=== PATIENT | female | born 1990 | race Caucasian/White ===

== ENCOUNTER 2018-05-24 12:55 | Emergency (ER) | payer OTHER ==
[2018-05-24 13:15] VITALS: BP 107/56; PULSE 81; TEMP 98.8; BMI 28.7
--- NOTE | 2018-05-24 13:20 | PDOC ---
History of Present Illness - General Chief Complaint: Chest Pain Stated Complaint: CHEST PAIN/SHORT BREATH Time Seen by Provider: 05/24/18 13:20 Past History - Past Medical History Allergies/Adverse Reactions: Allergies Allergy/AdvReac Type Severity Reaction Status Date / Time No Known Allergies Allergy Verified 05/24/18 13:12 COPD: No Thyroid Disease: Yes Other medical history: lmp 05/03/2018 - Suicide/Smoking/Psychosocial Hx Smoking History: Unknown if ever smoked *Physical Exam - Vital Signs Last Vital Signs Temp Pulse Resp BP Pulse Ox 98.8 F 81 18 107/56 L 99 05/24/18 13:05 05/24/18 13:05 05/24/18 13:05 05/24/18 13:05 05/24/18 13:05 Moderate Sedation - Procedure Monitoring Vital Signs: Procedure Monitoring Vital Signs Temperature 98.8 F 05/24/18 13:05 Pulse Rate 81 05/24/18 13:05 Respiratory Rate 18 05/24/18 13:05 Blood Pressure 107/56 L 05/24/18 13:05 O2 Sat by Pulse Oximetry (%) 99 05/24/18 13:05
--- NOTE | 2018-05-24 14:06 | PDOC ---
History of Present Illness - General Chief Complaint: Chest Pain Stated Complaint: CHEST PAIN/SHORT BREATH Time Seen by Provider: 05/24/18 13:20 History Source: Patient Exam Limitations: No Limitations - History of Present Illness Initial Comments: 05/24/18 14:34 27-year-old female with no past medical history presents ED with complaints of midsternal chest tightness worsened with exertion and deep breathing. Patient also states feels short of breath with exertion. Patient states went to an urgent care clinic twice in yesterday she had blood work done. Patient states received a phone call this 20 4 AM to go to the nearest ER since her d-dimer was elevated. Patient denies any exogenous estrogen usage, recent travel, surgery, clotting disorders, or smoking history. Timing/Duration: 1 week Severity: moderate Associated Symptoms: reports: chest pain, shortness of breath Past History - Travel Traveled outside of the country in the last 30 days: No Close contact w/someone who was outside of country & ill: No - Past Medical History Allergies/Adverse Reactions: Allergies Allergy/AdvReac Type Severity Reaction Status Date / Time No Known Allergies Allergy Verified 05/24/18 13:12 COPD: No Thyroid Disease: Yes Other medical history: lmp 05/03/2018 - Reproductive History LMP Normal: Yes - Suicide/Smoking/Psychosocial Hx Smoking History: Unknown if ever smoked Hx Alcohol Use: No Drug/Substance Use Hx: No Substance Use Type: None Patient Lives Alone: No Review of Systems - Review of Systems Able to Perform ROS?: Yes Is the patient limited [place] proficient: No Constitutional: No: Symptoms Reported HEENTM: No: Symptoms Reported Respiratory: Yes: SOB with Exertion Cardiac (ROS): Yes: Chest Pain, Chest Tightness ABD/GI: No: Symptoms Reported : No: Symptoms Reported Musculoskeletal: No: Symptoms Reported Integumentary: No: Symptoms Reported Neurological: No: Symptoms reported Endocrine: No: Symptoms Reported *Physical Exam - Vital Signs Last Vital Signs Temp Pulse Resp BP Pulse Ox 98.8 F 81 18 107/56 L 99 05/24/18 13:05 05/24/18 13:05 05/24/18 13:05 05/24/18 13:05 05/24/18 13:05 - Physical Exam General Appearance: Yes: Nourished, Appropriately Dressed HEENT: positive: EOMI, TAMARA, TMs Normal, Pharynx Normal. negative: Pale Conjunctivae Neck: positive: Supple Respiratory/Chest: positive: Lungs Clear, Normal Breath Sounds. negative: Respiratory Distress, Accessory Muscle Use Cardiovascular: positive: Regular Rhythm, Regular Rate. negative: Murmur Gastrointestinal/Abdominal: positive: Soft. negative: Tenderness Integumentary: positive: Normal Color, Warm, Moist Neurologic: positive: Normal Mood/Affect, Motor Strength 5/5 (ambulatory) Moderate Sedation - Procedure Monitoring Vital Signs: Procedure Monitoring Vital Signs Temperature 98.8 F 05/24/18 13:05 Pulse Rate 81 05/24/18 13:05 Respiratory Rate 18 05/24/18 13:05 Blood Pressure 107/56 L 05/24/18 13:05 O2 Sat by Pulse Oximetry (%) 99 05/24/18 13:05 ED Treatment Course - LABORATORY CBC & Chemistry Diagram: 05/24/18 13:55 05/24/18 13:55 Medical Decision Making - Medical Decision Making 05/24/18 14:06 Chief complaint: Chest pain with shortness of breath on exertion for one week patient elevated d-dimer from urgent care clinic yesterday Exam: Patient with normal vital signs. Plan: labs, EKG, and urine urine 05/24/18 14:38 Laboratory Tests 05/24/18 05/24/18 13:55 14:10 WBC 8.9 Hgb 9.1 L Hct 29.4 L MCV 65.3 L Urine HCG, Qual Negative 05/24/18 14:50 Laboratory Tests 05/24/18 05/24/18 13:55 13:55 D-Dimer 523 H Sodium 141 Potassium 3.8 Chloride 108 H Carbon Dioxide 26 Anion Gap 7 L BUN 13 Creatinine 0.9 Creat Clearance w eGFR > 60 Random Glucose 78 Calcium 8.7 Total Bilirubin 0.6 AST 16 ALT 20 Alkaline Phosphatase 65 Creatine Kinase 85 Troponin I < 0.02 Total Protein 7.2 Albumin 3.9 Pt ordered for chest CTA 05/24/18 16:45 Laboratory Tests 05/24/18 05/24/18 13:55 14:10 D-Dimer 523 H Ur Leukocyte Esterase 3+ H Urine WBC (Auto) 16 CTA shows no evidence of pulmonary embolism or acute intracranial pathology .patient's UA was showing bacteria. Urine culture was sent. Patient will be called the results. 05/24/18 16:45 *DC/Admit/Observation/Transfer Diagnosis at time of Disposition: Chest pain - Discharge Dispostion Disposition: HOME Condition at time of disposition: Good - Referrals Referrals: ON STAFF,NOT [Primary Care Provider] - - Patient Instructions Printed Discharge Instructions: DI for Atypical Chest Pain Additional Instructions: At this time your labs and CT were negative for acute cardiac etiology. I recommend at this time following up with your doctor. If the urine culture shows a bacterial infection you will receive a phone call for treatment. - Post Discharge Activity Forms/Work/School Notes: Back to Work
[2018-05-24 14:23] LABS: HCG,QUALITATIVE URINE Negative
[2018-05-24 14:24] LABS: BASO % 1.2 % (0-2.0); EOS % 0.5 % (0-4.5); HEMATOCRIT 29.4 % (32.4-45.2); HEMOGLOBIN 9.1 GM/dL (10.7-15.3); MCH 20.3 pg (25.7-33.7); MCHC 31.1 g/dl (32.0-36.0); MEAN CELL VOLUME 65.3 fl (80-96); MEAN PLT VOLUME 9.1 fl (7.5-11.1); MONO % 9.2 % (3.8-10.2); NEUT % 68.1 % (42.8-82.8); PLATELET COUNT 221 K/MM3 (134-434); RDW 23.3 % (11.6-15.6); WHITE BLOOD COUNT 8.9 K/mm3 (4.0-10.0)
[2018-05-24 14:48] LABS: ALBUMIN 3.9 g/dl (3.4-5.0); ALK PHOS 65 U/L (45-117); ANION GAP 7 MMOL/L (8-16); BILIRUBIN,TOTAL 0.6 mg/dL (0.2-1); BLOOD UREA NITROGEN 13 mg/dL (7-18); CALCIUM 8.7 mg/dL (8.5-10.1); CHLORIDE 108 mmol/L (98-107); CO2 26 mmol/L (21-32); CREATININE 0.9 mg/dL (0.55-1.3); GLUCOSE,RANDOM 78 mg/dL (74-106); POTASSIUM 3.8 mmol/L (3.5-5.1); SGOT/AST 16 U/L (15-37); SGPT/ALT 20 U/L (13-61); SODIUM 141 mmol/L (136-145); TOT PROT 7.2 g/dl (6.4-8.2)
[2018-05-24 14:49] LABS: URINE APPEARANCE SLCLOUDY; URINE BILIRUBIN NEGATIVE (<2.0 mg/dL); URINE COLOR LTYELLOW; URINE GLUCOSE (UA) NEGATIVE (NEGATIVE); URINE KETONE NEGATIVE (NEGATIVE); URINE LEUK ESTERASE 3+ (NEGATIVE); URINE NITRITE NEGATIVE (NEGATIVE); URINE PROTEIN NEGATIVE (NEGATIVE); URINE UROBILINOGEN NEGATIVE mg/dL (0.2-1.0)
[2018-05-24 14:53] LABS: EPI CELLS RARE /HPF (FEW)
[2018-05-24 15:31] LABS: ANISOCYTOSIS 2+
--- NOTE | 2018-05-25 11:40 | EKG ---
Test Reason : Blood Pressure : / mmHG Vent. Rate : 081 BPM Atrial Rate : 081 BPM P-R Int : 140 ms QRS Dur : 086 ms QT Int : 366 ms P-R-T Axes : 060 075 056 degrees QTc Int : 425 ms NORMAL SINUS RHYTHM NORMAL ECG NO PREVIOUS ECGS AVAILABLE Confirmed by SADIA ANTONIO, ZAYDA ([id number]) on 05/25/2018 11:39:44 AM Referred By: Confirmed By:ZAYDA MCCULLOUGH MD
== END 2018-05-24 16:57 | disposition home or self-care (01) ==
LOC: JER 12:55
DX: R07.9 Chest pain, unspecified (principal)
CPT/HCPCS: 36415; 71275-TC; 80053; 81003; 81015; 82550; 84484; 84703; 85025; 85379; 87086; 93005; 93010; 99282-25